=== PATIENT | male | born 1985 | race Caucasian/White ===

== ENCOUNTER 2018-10-11 20:40 | Emergency (ER) | payer SELFPAY ==
[~2018-10-11] VITALS: Ht 177.8 cm; Wt 77.1 kg
[2018-10-11] MEDS ORDERED: ACETAMINOPHEN 325 MG TAB PO ONE (21:15)
[2018-10-11 21:23] LABS: Basophils # (auto) 0 uL; Basophils % (auto) 0.3 % (0.0-2.0); Eosinophils # (auto) 0 uL; Hematocrit 46.2 % (41.0-53.0); Hemoglobin 16.2 g/dL (13.5-17.5); Lymphocytes # (auto) 1.2 uL; Lymphocytes % (auto) 11.9 % (10.0-50.0); Mean Corpuscular Hemoglobin 30.3 pg (28.0-32.0); Mean Corpuscular Hgb Conc. 35.1 g/dL (32.0-36.0); Mean Corpuscular Volume 86.5 fL (80.0-100.0); Monocytes # (auto) 0.7 uL; Monocytes % (auto) 7.3 % (0.0-12.0); Neutrophils # (auto) 7.8 uL; Neutrophils % (auto) 80.5 % (37.0-80.0); Nucleated Red Blood Cells % 0.2 %; Platelet Count (auto) 165 10^3/uL (140-450); Red Blood Cells 5.34 10^6/uL (4.5-5.90); Red Cell Distribution Width 12.4 % (11.8-14.3); White Blood Cell 9.7 10^3/uL (4.4-10.8)
[2018-10-11 21:40] LABS: Albumin 3.8 g/dL (3.4-5.0); BUN/Creatinine Ratio 12.6; Calcium 8.6 mg/dL (8.5-10.1); Potassium 3.4 mmol/L (3.5-5.1)
[2018-10-11 21:43] LABS: Bilirubin, Total 0.7 mg/dL (0.2-1.0); Total Protein 7.1 g/dL (6.4-8.2)
[2018-10-11 22:27] LABS: Amylase 44 U/L (25-115); Lipase 80 U/L (73-393)
[2018-10-12 00:15] VITALS: BP 112/63
== END 2018-10-12 00:19 | disposition home or self-care (01) ==
LOC: ER 20:47
DX: K52.9 Noninfective gastroenteritis and colitis, unspecified (principal); I88.0 Nonspecific mesenteric lymphadenitis; M62.830 Muscle spasm of back
CPT/HCPCS: 36415; 74176; 80053; 82150; 83690; 84484; 85025

== ENCOUNTER 2019-01-03 19:41 | Emergency (ER) | payer SELFPAY ==
[~2019-01-03] VITALS: Ht 172.7 cm; Wt 77.1 kg
[2019-01-03 20:19] VITALS: BP 143/93
== END 2019-01-03 22:02 | disposition home or self-care (01) ==
LOC: ER 19:45
DX: S60.011A Contusion of right thumb without damage to nail, initial encounter (principal); T23.011A Burn of unspecified degree of right thumb (nail), initial encounter; V28.4XXA Motorcycle driver injured in noncollision transport accident in traffic accident, initial encounter; Y93.89 Activity, other specified; Y99.8 Other external cause status; Y92.89 Other specified places as the place of occurrence of the external cause

== ENCOUNTER → 2022-04-29 | Emergency (ER) | payer BC | END | disposition left against medical advice (07) | LOC: ER 07:13 | DX: M54.9 Dorsalgia, unspecified (principal); Z53.21 Procedure and treatment not carried out due to patient leaving prior to being seen by health care provider ==